=== PATIENT | male | born 1955 | race Two or more races ===

== ENCOUNTER 2023-04-25 17:43 | Emergency (ER) | payer OTHER ==
[~2023-04-25] VITALS: Ht 160 cm; Wt 75.0 kg
[2023-04-25 17:51] VITALS: TEMP 98.1
[2023-04-25] MEDS ORDERED: PERTUSS(ACELL),DIPH,TET VAC/PF 0.5 ML SYRINGE IM. ONE (19:00)
[2023-04-25] MEDS ORDERED: LIDOCAINE 1% 10 ML VIAL ID ONE (19:00)
[2023-04-25] MEDS ORDERED: AMOX TR/POT CLAV 875 MG/125 MG TABLET PO ONE (20:00)
[2023-04-25] MEDS ORDERED: BACITRACIN 0.9 GM PACKET OINTMENT TP ONE (20:00)
[2023-04-25] MEDS ORDERED: AMOX1TAB16 PO (20:21)
[2023-04-25 20:41] VITALS: BP 129/67; PULSE 76; RESP 18
== END 2023-04-25 20:42 | disposition home or self-care (01) ==
LOC: EMS 17:47
DX: S61.032A Puncture wound without foreign body of left thumb without damage to nail, initial encounter (principal); X58.XXXA Exposure to other specified factors, initial encounter; Y93.89 Activity, other specified; Y92.89 Other specified places as the place of occurrence of the external cause; Y99.8 Other external cause status
CPT/HCPCS: 99283; 73140; 90715; 90471; 12001; J3490

== ENCOUNTER 2023-07-12 18:17 | Emergency (ER) | payer MEDICARE, OTHER ==
[~2023-07-12] VITALS: Ht 167.6 cm; Wt 70.5 kg
[~2023-07-12 18:17] MED LIST: AMOX1TAB16 PO
[2023-07-12 18:19] VITALS: BP 141/82; PULSE 84; RESP 18; TEMP 98.4
[2023-07-12] MEDS ORDERED: METH-659 PO (21:31)
[2023-07-12] MEDS ORDERED: IBUP-1554 PO (21:31)
== END 2023-07-12 22:12 | disposition left against medical advice (07) ==
LOC: EMS 18:19
DX: M54.50 Low back pain, unspecified (principal)
CPT/HCPCS: 72100; 72170; 99284; Z7502